=== PATIENT | male | born 1985 | race Caucasian/White ===

== ENCOUNTER 2016-12-27 02:04 | Emergency (ER) | payer OTHER ==
[~2016-12-27 02:04] MED LIST: HYDR10TA16 PO; ROXI5SOL2 PO; XANA2TAB2 PO
[2016-12-27 02:13] VITALS: BP 132/79; PULSE 60; RESP 16; TEMP 97.7; O2SAT 100
== END 2016-12-27 03:00 | disposition left against medical advice (07) ==
LOC: NED 02:04
DX: R11.10 Vomiting, unspecified (principal); Z53.21 Procedure and treatment not carried out due to patient leaving prior to being seen by health care provider
CPT/HCPCS: 99281

== ENCOUNTER 2017-02-24 18:06 | Emergency (ER) | payer SELFPAY ==
[~2017-02-24] VITALS: Ht 167.6 cm; Wt 56.0 kg
[2017-02-24] MEDS ORDERED: IOHEXOL 350 MG/ML 10 ML VIAL (for RAD DIAG) IVCONTRAST ONE (18:07)
[2017-02-24 18:16] VITALS: BP 132/85; PULSE 70; RESP 16; TEMP 99.2; O2SAT 100
[2017-02-24] MEDS ORDERED: SODIUM CHLOR 0.9% 1000 ML INJ 1,000 ML IV SCH (18:31)
--- NOTE | 2017-02-24 18:32 | PD ---
HPI Chief Complaint: Abdominal pain Time Seen by Provider: 18:31 Travel History International Travel<30 days: No Contact w/Intl Traveler<30days: No History of Present Illness HPI patient is a 31-year-old male presents emergency department for evaluation of right upper greater than right lower quadrant abdominal pain for the past 2-3 days. Gradually worsening. Associated with nausea and emesis of "bile" which is yellow in color. Denies diarrhea denies constipation denies history of fever denies migratory pattern. Denies any dysuria. States his symptoms a never happened before. Symptoms are moderate to severe, constant. PFSH Past Medical History Anxiety: Yes Diminished Hearing: No Musculoskeletal: Yes (CHRONIC PAIN) Social History Alcohol Use: Yes (RARELY) Tobacco Use: Yes (<1PPD) Substance Use: No Allergies-Medications (Allergen,Severity, Reaction): Coded Allergies: No Known Allergies (Verified , 09/06/10) Reported Meds & Prescriptions Reported Meds & Active Scripts Active Zofran (Ondansetron HCl) 4 Mg Tab 4 Mg PO Q6HR PRN Bentyl (Dicyclomine HCl) 10 Mg Cap 10 Mg PO TID PRN Reported Lortab 10/500 (Acetaminophen/Hydrocodone Bitart) 10 Mg/500 Mg Tab 1 Tab PO Q4HPRN FOR PAIN Roxicodone (Oxycodone HCl) 5 Mg/5 Ml Bernice 30 Mg PO Q6 Xanax 2 mg (Alprazolam) 2 Mg Tab 3 Mg PO DAILY Review of Systems Except as stated in HPI: all other systems reviewed are Neg Physical Exam Narrative GENERAL: [Well-developed well-nourished in moderate discomfort. Sitting in the position on the stretcher. SKIN: Focused skin assessment warm/dry. HEAD: Atraumatic. Normocephalic. EYES: Pupils equal and round. No scleral icterus. No injection or drainage. ENT: No nasal bleeding or discharge. Mucous membranes pink and moist. NECK: Trachea midline. No JVD. CARDIOVASCULAR: Regular rate and rhythm. No murmur appreciated. RESPIRATORY: No accessory muscle use. Clear to auscultation. Breath sounds equal bilaterally. GASTROINTESTINAL: Abdomen soft but with voluntary guarding., non-tender, nondistended. Hepatic and splenic margins not palpable. No rebound no percussive tenderness, Pandey sign negative, no tenderness in the right lower quadrant.. MUSCULOSKELETAL: No obvious deformities. No clubbing. No cyanosis. No edema. NEUROLOGICAL: Awake and alert. No obvious cranial nerve deficits. Motor grossly within normal limits. Normal speech. PSYCHIATRIC: Appropriate mood and affect; insight and judgment normal. Data Data Last Documented VS Vital Signs Date Time Temp Pulse Resp B/P (MAP) Pulse Ox O2 Delivery O2 Flow Rate FiO2 02/24/17 21:48 72 20 138/68 (91) 98 02/24/17 19:14 100.2 02/24/17 18:16 Room Air Orders Orders Complete Blood Count With Diff (02/24/17 18:31) Comprehensive Metabolic Panel (02/24/17 18:31) Lipase (02/24/17 18:31) Urinalysis - C+S If Indicated (02/24/17 18:31) Iv Access Insert/Monitor (02/24/17 18:31) Ecg Monitoring (02/24/17 18:31) Oximetry (02/24/17 18:31) Morphine Inj (Morphine Inj) (02/24/17 18:45) Ondansetron Inj (Zofran Inj) (02/24/17 18:45) Sodium Chlor 0.9% 1000 Ml Inj (Ns 1000 M (02/24/17 18:31) Sodium Chloride 0.9% Flush (Ns Flush) (02/24/17 18:45) Ct Abd/Pel W Iv Contrast(Rout) (02/24/17 ) Iohexol 350 Inj (Omnipaque 350 Inj) (02/24/17 18:07) Sodium Chlor 0.9% 1000 Ml Inj (Ns 1000 M (02/24/17 20:45) Labs Laboratory Tests Test 02/24/17 18:40 02/24/17 20:45 White Blood Count 14.1 TH/MM3 Red Blood Count 5.21 MIL/MM3 Hemoglobin 16.4 GM/DL Hematocrit 48.1 % Mean Corpuscular Volume 92.3 FL Mean Corpuscular Hemoglobin 31.5 PG Mean Corpuscular Hemoglobin Concent 34.1 % Red Cell Distribution Width 13.9 % Platelet Count 216 TH/MM3 Mean Platelet Volume 8.6 FL Neutrophils (%) (Auto) 90.1 % Lymphocytes (%) (Auto) 7.4 % Monocytes (%) (Auto) 1.4 % Eosinophils (%) (Auto) 0.1 % Basophils (%) (Auto) 1.0 % Neutrophils # (Auto) 12.8 TH/MM3 Lymphocytes # (Auto) 1.0 TH/MM3 Monocytes # (Auto) 0.2 TH/MM3 Eosinophils # (Auto) 0.0 TH/MM3 Basophils # (Auto) 0.1 TH/MM3 CBC Comment DIFF FINAL Differential Comment Blood Urea Nitrogen 17 MG/DL Creatinine 1.10 MG/DL Random Glucose 129 MG/DL Total Protein 8.3 GM/DL Albumin 4.8 GM/DL Calcium Level 10.2 MG/DL Alkaline Phosphatase 55 U/L Aspartate Amino Transf (AST/SGOT) 17 U/L Alanine Aminotransferase (ALT/SGPT) 26 U/L Total Bilirubin 0.8 MG/DL Sodium Level 139 MEQ/L Potassium Level 3.8 MEQ/L Chloride Level 103 MEQ/L Carbon Dioxide Level 26.1 MEQ/L Anion Gap 10 MEQ/L Estimat Glomerular Filtration Rate 79 ML/MIN Lipase 130 U/L Urine Color YELLOW Urine Turbidity CLEAR Urine pH GREATER/EQUAL 9.0 Urine Specific [place] GREATER THAN 1.035 Urine Protein 30 mg/dL Urine Glucose (UA) NEG mg/dL Urine Ketones 15 mg/dL Urine Occult Blood NEG Urine Nitrite NEG Urine Bilirubin NEG Urine Leukocyte Esterase NEG Urine WBC 0-2 /hpf Urine Squamous Epithelial Cells 0-5 /hpf Microscopic Urinalysis Comment CULT NOT INDICATED MDM Medical Decision Making Medical Screen Exam Complete: Yes Emergency Medical Condition: Yes Differential Diagnosis UTI, appendicitis, cholecystitis unlikely, gastritis, gastroenteritis, kidney stone. Narrative Course patient roomed in emergency department, elevated white blood cell count of 14, 000 with left shift, CT abdomen and pelvis within normal limits. Electrolytes within normal limits. Urine very concentrated the patient was given 2 L of fluid 4 mg of Zofran forming arms morphine. On reassessment his abdomen is benign and the patient states "I feel 100% better". Dehydration certainly contributing to his symptoms gastroenteritis is a possibility. At this time recommended symptomatic management aggressive hydration and bland diet. Discussed return to ED criteria follow-up the primary care physician. He is stable for discharge. Diagnosis Primary Impression: Abdominal pain Qualified Codes: R10.11 - Right upper quadrant pain Additional Impressions: Dehydration Gastroenteritis Patient Instructions: Dehydration (DC), Gastroenteritis (DC), General Instructions Scripts Ondansetron (Zofran) 4 Mg Tab 4 MG PO Q6HR Y for NAUSEA OR VOMITING, #20 TAB 0 Refills Prov: Jose Junior MD 02/24/17 Dicyclomine (Bentyl) 10 Mg Cap 10 MG PO TID Y for Bowel Management, #20 CAP 0 Refills Prov: Jose Junior MD 02/24/17 Disposition: 01 DISCHARGE HOME Condition: Stable Jose Junior MD Feb 24, 2017 18:32
[2017-02-24] MEDS ORDERED: MORPHINE SULFATE 4 MG/ML INJ IV PUSH ONE (18:45)
[2017-02-24] MEDS ORDERED: SODIUM CHLORIDE 0.9% FLUSH 10 ML FLUSH IV FLUSH PRN (18:45)
[2017-02-24] MEDS ORDERED: ONDANSETRON HCL 4 MG/2 ML VIAL IVP ONE (18:45)
[2017-02-24 18:49] LABS: AUTOMATED NEUTROPHIL # 12.8 TH/MM3 (1.8-7.7); BASOPHIL # 0.1 TH/MM3 (0-0.2); EOSINOPHIL % 0.1 % (0.0-4.0); HEMATOCRIT 48.1 % (39.0-51.0); HEMO FLAGS DIFF FINAL; LYMPH % 7.4 % (9.0-44.0); MEAN CELL VOLUME 92.3 FL (80.0-100.0); MEAN CORPUSCULAR HEMOGLOBIN 31.5 PG (27.0-34.0); MEAN CORPUSCULAR HGB CONC 34.1 % (32.0-36.0); MONO % 1.4 % (0.0-8.0); NEUT % 90.1 % (16.0-70.0); PLATELET COUNT 216 TH/MM3 (150-450); RED BLOOD COUNT 5.21 MIL/MM3 (4.50-5.90); RED CELL DISTRIBUTION WIDTH 13.9 % (11.6-17.2); WHITE BLOOD COUNT 14.1 TH/MM3 (4.0-11.0)
[2017-02-24 18:56] LABS: CHLORIDE 103 MEQ/L (98-107); POTASSIUM 3.8 MEQ/L (3.5-5.1); SODIUM (NA) 139 MEQ/L (136-145)
[2017-02-24 19:00] LABS: ANION GAP 10 MEQ/L (5-15); BICARBONATE 26.1 MEQ/L (21.0-32.0); BLOOD UREA NITROGEN 17 MG/DL (7-18)
[2017-02-24 19:03] LABS: ALT (GPT) 26 U/L (12-78); AST (GOT) 17 U/L (15-37); GLOMERULAR FILTRATION RATE 79 ML/MIN (>89)
[2017-02-24 19:04] LABS: TOTAL BILIRUBIN ADULT 0.8 MG/DL (0.2-1.0)
[2017-02-24 19:06] LABS: ALKALINE PHOSPHATASE 55 U/L (45-117)
[2017-02-24 19:14] VITALS: BP 133/84; PULSE 79; RESP 20; TEMP 100.2; O2SAT 100
--- NOTE | 2017-02-24 20:01 | RADRPT ---
EXAM DATE/TIME: 02/24/2017 19:32 [facility] COMPARISON: No previous studies available for comparison. INDICATIONS : Right lower quad pain for 13 hours IV CONTRAST: 98 cc Omnipaque 350 (iohexol) IV ORAL CONTRAST: No oral contrast ingested. RADIATION DOSE: 3.79 CTDIvol (mGy) MEDICAL HISTORY : None SURGICAL HISTORY : None. ENCOUNTER: Initial ACUITY: 1 day PAIN SCALE: 10/10 LOCATION: Right lower quadrant TECHNIQUE: Volumetric scanning of the abdomen and pelvis was performed. Using automated exposure control and ad justment of the mA and/or kV according to patient size, radiation dose was kept as low as reasonably achievable to obtain optimal diagnostic quality images. DICOM format image data is available electro nically for review and comparison. FINDINGS: LOWER LUNGS: The visualized lower lungs are clear. LIVER: Homogeneous density without lesion. There is no dilation of the biliary tree. No calcified gallston es. SPLEEN: Normal size without lesion. PANCREAS: Within normal limits. KIDNEYS: Normal in size and shape. There is no mass, stone or hydronephrosis. ADRENAL GLANDS: Within normal limits. VASCULAR: There is no aortic aneurysm. BOWEL/MESENTERY: The stomach, small bowel, and colon demonstrate no acute abnormality. There is no free intraperitone al air or fluid. The appendix is well-visualized and normal. ABDOMINAL WALL: Within normal limits. RETROPERITONEUM: There is no lymphadenopathy. BLADDER: No wall thickening or mass. REPRODUCTIVE: Within normal limits. INGUINAL: There is no lymphadenopathy or hernia. MUSCULOSKELETAL: Within normal limits for patient age. CONCLUSION: Negative CT of the abdomen and pelvis. No appendicitis or other acute abnormality. Nolan Quigley MD on February 24, 2017 at 19:58 Board Certified Radiologist. This report was verified electronically.
[2017-02-24] MEDS ORDERED: SODIUM CHLOR 0.9% 1000 ML INJ 1,000 ML IV ONE (20:45)
[2017-02-24 21:02] LABS: BLOOD, URINE NEG (NEG); GLUCOSE,URINE NEG (NEG); KETONE, URINE 15 mg/dL (NEG); NITRITE,URINE NEG (NEG); PH, URINE GREATER/EQUAL 9.0 (5.0-8.5)
[2017-02-24 21:14] LABS: URINE COLOR YELLOW (YELLW/STRAW)
[2017-02-24 21:15] LABS: COMMENT (UR) CULT NOT INDICATED; CULTURE IF INDICATED CULT NOT INDICATED; SQUAMOUS EPITHELIAL CELL URINE 0-5 /hpf (0-5); WBC, URINE 0-2 /hpf (0-5)
[2017-02-24] MEDS ORDERED: ZOFR4TAB PO (21:32)
[2017-02-24] MEDS ORDERED: DICY10 PO (21:32)
[2017-02-24 21:48] VITALS: BP 138/68
== END 2017-02-24 21:52 | disposition home or self-care (01) ==
LOC: PHED 18:06
DX: R10.11 Right upper quadrant pain (principal); E86.0 Dehydration; K52.9 Noninfective gastroenteritis and colitis, unspecified; F17.210 Nicotine dependence, cigarettes, uncomplicated
CPT/HCPCS: 74177; 80053; 81001; 83690; 85025; 96361; 96374; 96375; 99285; J2270; J2405; J7030; Q9967

== ENCOUNTER 2017-05-01 11:28 | Emergency (ER) | payer SELFPAY ==
[~2017-05-01] VITALS: Ht 167.6 cm; Wt 53.0 kg
[~2017-05-01 11:28] MED LIST changes: +DICY10 PO; +ZOFR4TAB PO
[2017-05-01 11:38] VITALS: BP 145/111; PULSE 71; RESP 20; TEMP 98.1; O2SAT 100
--- NOTE | 2017-05-01 11:48 | PD ---
HPI Chief Complaint: Abdominal Pain Time Seen by Provider: 11:46 Travel History International Travel<30 days: No Contact w/Intl Traveler<30days: No Traveled to known affect area: No History of Present Illness HPI c/o 3 day h/o crampy abd pain, nonrad, 10/13, assoc with n/v/d......no aggravating or alleviating factors.......denies assoc factors of fever/gerard/cp/ backpain/cough/sore throat at this time PFSH Past Medical History Anxiety: Yes Diminished Hearing: No Musculoskeletal: Yes (CHRONIC PAIN) Social History Alcohol Use: Yes (RARELY) Tobacco Use: Yes (<1PPD) Substance Use: No Allergies-Medications (Allergen,Severity, Reaction): Coded Allergies: No Known Allergies (Verified Adverse Reaction, Unknown, 05/01/17) Reported Meds & Prescriptions Reported Meds & Active Scripts Active Zofran Odt (Ondansetron Odt) 4 Mg Tab 4 Mg SL Q6HR PRN Ultram (Tramadol HCl) 50 Mg Tab 50 Mg PO Q6H PRN Review of Systems General / Constitutional: No: Fever Eyes: No: Visual changes HENT: No: Headaches Cardiovascular: No: Chest Pain or Discomfort Respiratory: No: Shortness of Breath Gastrointestinal: Positive: Nausea, Vomiting, Diarrhea, Abdominal Pain Genitourinary: No: Dysuria Musculoskeletal: No: Pain Skin: No Rash Neurologic: No: Weakness Psychiatric: No: Depression Endocrine: No: Polydipsia Hematologic/Lymphatic: No: Easy Bruising Physical Exam Narrative GENERAL: SKIN: Warm and dry. HEAD: Atraumatic. Normocephalic. EYES: Pupils equal and round. No scleral icterus. No injection or drainage. ENT: No nasal bleeding or discharge. Mucous membranes pink and moist. NECK: Trachea midline. No JVD. CARDIOVASCULAR: Regular rate and rhythm. RESPIRATORY: No accessory muscle use. Clear to auscultation. Breath sounds equal bilaterally. GASTROINTESTINAL: Abdomen soft, non-tender, nondistended. hyperactive bowel sounds MUSCULOSKELETAL: Extremities without clubbing, cyanosis, or edema. No obvious deformities. NEUROLOGICAL: Awake and alert. No obvious cranial nerve deficits. Motor grossly within normal limits. Five out of 5 muscle strength in the arms and legs. Normal speech. PSYCHIATRIC: Appropriate mood and affect; insight and judgment normal. Data Data Last Documented VS Orders Orders Urinalysis - C+S If Indicated (05/01/17 11:29) Complete Blood Count With Diff (05/01/17 11:51) Comprehensive Metabolic Panel (05/01/17 11:51) Lipase (05/01/17 11:51) Ct Abd/Pel W/O Iv Contrast (05/01/17 11:51) Iv Access Insert/Monitor (05/01/17 11:51) Ecg Monitoring (05/01/17 11:51) Oximetry (05/01/17 11:51) NPO (05/01/17 11:51) Ondansetron Inj (Zofran Inj) (05/01/17 12:00) Sodium Chlor 0.9% 1000 Ml Inj (Ns 1000 M (05/01/17 11:51) Dicyclomine Inj (Bentyl Inj) (05/01/17 12:00) Ed Discharge Order (05/01/17 13:52) Metoclopramide Inj (Reglan Inj) (05/01/17 14:30) Labs Laboratory Tests Test 05/01/17 11:40 05/01/17 11:50 Urine Collection Type CLEAN CATCH Urine Color YELLOW Urine Turbidity MOD Urine pH 7.5 Urine Specific [place] 1.019 Urine Protein NEG mg/dL Urine Glucose (UA) NEG mg/dL Urine Ketones NEG mg/dL Urine Occult Blood NEG Urine Nitrite NEG Urine Bilirubin NEG Urine Leukocyte Esterase NEG Urine Squamous Epithelial Cells 0-5 /hpf Urine Amorphous Sediment LARGE Microscopic Urinalysis Comment CULT NOT INDICATED Urine Collection Time 1140 White Blood Count 13.1 TH/MM3 Red Blood Count 5.09 MIL/MM3 Hemoglobin 15.9 GM/DL Hematocrit 48.0 % Mean Corpuscular Volume 94.2 FL Mean Corpuscular Hemoglobin 31.2 PG Mean Corpuscular Hemoglobin Concent 33.2 % Red Cell Distribution Width 12.2 % Platelet Count 224 TH/MM3 Mean Platelet Volume 8.3 FL Neutrophils (%) (Auto) 79.2 % Lymphocytes (%) (Auto) 12.7 % Monocytes (%) (Auto) 5.5 % Eosinophils (%) (Auto) 0.5 % Basophils (%) (Auto) 2.1 % Neutrophils # (Auto) 10.2 TH/MM3 Lymphocytes # (Auto) 1.7 TH/MM3 Monocytes # (Auto) 0.7 TH/MM3 Eosinophils # (Auto) 0.1 TH/MM3 Basophils # (Auto) 0.3 TH/MM3 CBC Comment DIFF FINAL Differential Comment Blood Urea Nitrogen 12 MG/DL Creatinine 1.10 MG/DL Random Glucose 98 MG/DL Total Protein 6.7 GM/DL Albumin 3.8 GM/DL Calcium Level 8.8 MG/DL Alkaline Phosphatase 42 U/L Aspartate Amino Transf (AST/SGOT) 19 U/L Alanine Aminotransferase (ALT/SGPT) 39 U/L Total Bilirubin 0.5 MG/DL Sodium Level 139 MEQ/L Potassium Level 4.0 MEQ/L Chloride Level 106 MEQ/L Carbon Dioxide Level 26.7 MEQ/L Anion Gap 6 MEQ/L Estimat Glomerular Filtration Rate 79 ML/MIN Lipase 124 U/L [facility] Medical Decision Making Medical Screen Exam Complete: Yes Emergency Medical Condition: Yes Medical Record Reviewed: Yes Differential Diagnosis gastroenteritis v pancreatitis v hepatitis v atypical appendicitis Narrative Course PATIENT HAD A MILD LEUKOCYTOSIS, NL LFT'S, NL LIPASE, CT OF ABD/PELVIS IS NEG FOR APPY. PATIENT WILL BE TREATED FOR GASTROENTERITIS Diagnosis Primary Impression: Gastroenteritis Patient Instructions: Gastroenteritis (DC), General Instructions Scripts Ondansetron Odt (Zofran Odt) 4 Mg Tab 4 MG SL Q6HR Y for Nausea/Vomiting, #20 TAB 0 Refills Prov: Micky Ewing MD 05/01/17 Tramadol (Ultram) 50 Mg Tab 50 MG PO Q6H Y for PAIN, #14 TAB 0 Refills Prov: Micky Ewing MD 05/01/17 Disposition: 01 DISCHARGE HOME Condition: Stable Micky Ewing MD May 01, 2017 11:48
[2017-05-01] MEDS ORDERED: SODIUM CHLOR 0.9% 1000 ML INJ 1,000 ML IV SCH (11:51)
[2017-05-01 11:52] LABS: BLOOD, URINE NEG (NEG); GLUCOSE,URINE NEG (NEG); KETONE, URINE NEG (NEG); METHOD OF COLLECTION CLEAN CATCH; NITRITE,URINE NEG (NEG); PH, URINE 7.5 (5.0-8.5); URINE COLOR YELLOW (YELLW/STRAW)
[2017-05-01] MEDS ORDERED: DICYCLOMINE HCL 20 MG/2 ML VIAL IM ONE (12:00)
[2017-05-01] MEDS ORDERED: ONDANSETRON HCL 4 MG/2 ML VIAL IVP ONE (12:00)
[2017-05-01 12:01] LABS: COMMENT (UR) CULT NOT INDICATED; COMMENT2 (UR) MUCOUS PRESENT; CULTURE IF INDICATED CULT NOT INDICATED; SQUAMOUS EPITHELIAL CELL URINE 0-5 /hpf (0-5)
[2017-05-01 12:04] LABS: AUTOMATED NEUTROPHIL # 10.2 TH/MM3 (1.8-7.7); BASOPHIL # 0.3 TH/MM3 (0-0.2); BASOPHIL % 2.1 % (0.0-2.0); EOSINOPHIL # 0.1 TH/MM3 (0-0.4); EOSINOPHIL % 0.5 % (0.0-4.0); HEMO FLAGS DIFF FINAL; LYMPH % 12.7 % (9.0-44.0); LYMPHOCYTE # 1.7 TH/MM3 (1.0-4.8); MEAN CELL VOLUME 94.2 FL (80.0-100.0); MEAN CORPUSCULAR HEMOGLOBIN 31.2 PG (27.0-34.0); MEAN CORPUSCULAR HGB CONC 33.2 % (32.0-36.0); MONO % 5.5 % (0.0-8.0); NEUT % 79.2 % (16.0-70.0); PLATELET COUNT 224 TH/MM3 (150-450); RED BLOOD COUNT 5.09 MIL/MM3 (4.50-5.90); RED CELL DISTRIBUTION WIDTH 12.2 % (11.6-17.2); WHITE BLOOD COUNT 13.1 TH/MM3 (4.0-11.0)
[2017-05-01 12:12] LABS: CHLORIDE 106 MEQ/L (98-107); SODIUM (NA) 139 MEQ/L (136-145)
[2017-05-01 12:14] VITALS: O2SAT 100
[2017-05-01 12:16] LABS: ANION GAP 6 MEQ/L (5-15); BICARBONATE 26.7 MEQ/L (21.0-32.0); BLOOD UREA NITROGEN 12 MG/DL (7-18)
[2017-05-01 12:19] LABS: ALT (GPT) 39 U/L (12-78); AST (GOT) 19 U/L (15-37); GLOMERULAR FILTRATION RATE 79 ML/MIN (>89)
[2017-05-01 12:21] LABS: TOTAL BILIRUBIN ADULT 0.5 MG/DL (0.2-1.0)
[2017-05-01 12:22] LABS: ALKALINE PHOSPHATASE 42 U/L (45-117)
--- NOTE | 2017-05-01 12:45 | RADRPT ---
EXAM DATE/TIME: 05/01/2017 12:27 [facility] COMPARISON: CT ABDOMEN & PELVIS W CONTRAST, February 24, 2017, 19:32. INDICATIONS : Non specific abdominal pain. Evaluate for renal calculi. ORAL CONTRAST: No oral contrast ingested. RADIATION DOSE: 6.10 CTDIvol (mGy) MEDICAL HISTORY : None SURGICAL HISTORY : Inguinal hernia repair. ENCOUNTER: Initial ACUITY: 3 days PAIN SCALE: 5/10 LOCATION: abdomen TECHNIQUE: Renal colic protocol. Volumetric scanning of the abdomen and pelvis was performed. Using automated exposure control and adjustment of the mA and/or kV according to patient size, radiation dose was kep t as low as reasonably achievable to obtain optimal diagnostic quality images. DICOM format image da ta is available electronically for review and comparison. FINDINGS: Right side: No calcified stones no evidence of hydronephrosis. No calcifications along the course of the right u reter. Left side: No calcified stones and no evidence of hydronephrosis. No calcifications along the course of the lef t ureter. Bladder: Smooth margins. No calcifications within the lumen. Other: No calcified gallstones. No dilated loops of small or large bowel. No evidence of free fluid. Stab le calcified phlebolith in the left pelvis. The visualized lower lungs are clear. CONCLUSION: Negative renal colic CT. Grey Casanova MD on May 01, 2017 at 12:41 Board Certified Radiologist. This report was verified electronically.
[2017-05-01] MEDS ORDERED: ZOFR4TAB3 SL (13:51)
[2017-05-01] MEDS ORDERED: TRAM50 PO (13:51)
[2017-05-01] MEDS ORDERED: METOCLOPRAMIDE HCL 10 MG/2 ML VIAL IV PUSH ONE (14:30)
== END 2017-05-01 14:30 | disposition home or self-care (01) ==
LOC: PHED 11:28
DX: K52.9 Noninfective gastroenteritis and colitis, unspecified (principal); F17.200 Nicotine dependence, unspecified, uncomplicated
CPT/HCPCS: 74176; 80053; 81001; 83690; 85025; 96361; 96372; 96374; 96375; 99285; J0500; J2405; J2765; J7030